=== PATIENT | male | born 1940 | race Caucasian/White ===

== ENCOUNTER 2018-03-19 14:54 | Outpatient (CLI) | payer MEDICARE, OTHER ==
--- NOTE | 2018-03-20 01:07 | XRAY Report ---
Reason: STUBBY INJURY #3 L, UNABLE TO EXTEND Procedure Date: 03/19/2018 Accession Number: [id number] / [id number] Procedure: XR - Finger(s) LT CPT Code: FULL RESULT: EXAM: LEFT THIRD DIGIT RADIOGRAPHY EXAM DATE: 03/19/2018 03:04 PM. CLINICAL HISTORY: STUBBY INJURY 3 left, UNABLE TO EXTEND. Distal tip of finger struck by a soccer ball 2-3 days ago. COMPARISON: None. TECHNIQUE: 3 views. FINDINGS: Chronic appearing calcifications adjacent to the distal aspect of the third proximal phalanx. 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 Adjacent chronic appearing calcifications. Adjacent soft tissue swelling. Mild third DIP osteoarthritis and adjacent dorsal chronic calcifications. Mild to moderate second PIP osteoarthritis. No dislocation. No evidence for acute fracture. IMPRESSION: No evidence for acute fracture. Soft tissue swelling adjacent to the third PIP joint. Osteoarthritis as above. RADIA
== END 2018-03-19 14:55 | disposition home or self-care (01) ==
LOC: DI 14:54
PROVIDERS: ATTEND Family Medicine
DX: S66.303A Unspecified injury of extensor muscle, fascia and tendon of left middle finger at wrist and hand level, initial encounter (principal); M19.042 Primary osteoarthritis, left hand
CPT/HCPCS: 73140

== ENCOUNTER 2019-06-13 09:19 | Outpatient (CLI) | payer MEDICARE, OTHER ==
[2019-06-13 09:47] LABS: BASOPHILS % (AUTO) 0.6 %; EOSINOPHILS # (AUTO) 0.3 10^3/uL (0.0-0.7); EOSINOPHILS % (AUTO) 6.2 %; HGB - HEMOGLOBIN 15.6 g/dL (14.0-18.0); LYMPHOCYTES # (AUTO) 1.4 10^3/uL (1.5-3.5); LYMPHOCYTES % (AUTO) 27.1 %; MEAN CORPUSCULAR HEMOGLOBIN 30.1 pg (27.0-31.0); MEAN CORPUSCULAR HGB CONC 33.3 g/dL (32.0-36.0); MEAN CORPUSCULAR VOLUME 90.4 fL (80.0-94.0); MEAN PLATELET VOLUME 9.1 fL (7.4-11.4); MONOCYTES # (AUTO) 0.7 10^3/uL (0.0-1.0); MONOCYTES % (AUTO) 12.2 %; NEUTROPHILS # (AUTO) 2.9 10^3/uL (1.5-6.6); NEUTROPHILS % (AUTO) 53.5 %; PLT - PLATELET COUNT 252 10^3/uL (130-450); RED BLOOD COUNT 5.19 10^6/uL (4.70-6.10); RED CELL DISTRIBUTION WIDTH 14.1 % (12.0-15.0); WHITE BLOOD COUNT 5.3 x10^3/uL (4.8-10.8)
[2019-06-13 10:05] LABS: ALBUMIN/GLOBULIN RATIO 1.1 (1.0-2.2); BILIRUBIN,TOTAL 0.9 mg/dL (0.2-1.0); CALCIUM 9.4 mg/dL (8.5-10.3); CREATININE 1.2 mg/dL (0.6-1.2); TOTAL PROTEIN 7.7 g/dL (6.7-8.2)
[2019-06-13 10:41] LABS: THYROID STIMULATING HORMONE 2.28 uIU/mL (0.34-5.60)
[2019-06-13 10:43] LABS: FREE T4 (FREE THYROXINE) 1.02 ng/dL (0.58-1.64)
== END 2019-06-13 09:20 | disposition home or self-care (01) ==
LOC: LAB 09:19
PROVIDERS: ATTEND Family Medicine
DX: E03.9 Hypothyroidism, unspecified (principal); L57.0 Actinic keratosis; C43.59 Malignant melanoma of other part of trunk; Q60.0 Renal agenesis, unilateral; Q60.2 Renal agenesis, unspecified
CPT/HCPCS: 36415; 80053; 84439; 84443; 84481; 85025

== ENCOUNTER 2020-08-01 08:18 | Outpatient (CLI) | payer MEDICARE, OTHER ==
[2020-08-01 08:35] LABS: BASOPHILS # (AUTO) 0.1 10^3/uL (0.0-0.1); EOSINOPHILS # (AUTO) 0.2 10^3/uL (0.0-0.7); EOSINOPHILS % (AUTO) 4.4 %; HCT - HEMATOCRIT 48.7 % (42.0-52.0); LYMPHOCYTES # (AUTO) 1.3 10^3/uL (1.5-3.5); LYMPHOCYTES % (AUTO) 25.3 %; MEAN CORPUSCULAR HEMOGLOBIN 30.1 pg (27.0-31.0); MEAN CORPUSCULAR HGB CONC 32.9 g/dL (32.0-36.0); MEAN CORPUSCULAR VOLUME 91.5 fL (80.0-94.0); MONOCYTES # (AUTO) 0.8 10^3/uL (0.0-1.0); MONOCYTES % (AUTO) 14.7 %; NEUTROPHILS # (AUTO) 2.8 10^3/uL (1.5-6.6); PLT - PLATELET COUNT 267 10^3/uL (130-450); RED BLOOD COUNT 5.32 10^6/uL (4.70-6.10); RED CELL DISTRIBUTION WIDTH 13.7 % (12.0-15.0); WHITE BLOOD COUNT 5.3 x10^3/uL (4.8-10.8)
[2020-08-01 08:53] LABS: ALBUMIN/GLOBULIN RATIO 1.1 (1.0-2.2); ALKALINE PHOSPHATASE 68 IU/L (42-121); ALT ALANINE AMINOTRANSFERASE 31 IU/L (10-60); AST ASPARTATE AMINOTRANSFERASE 21 IU/L (10-42); BILIRUBIN,TOTAL 0.8 mg/dL (0.2-1.0); BUN - BLOOD UREA NITROGEN 16 mg/dL (6-20); CALCIUM 9.5 mg/dL (8.5-10.3); CARBON DIOXIDE - CO2 27 mmol/L (21-32); CHLORIDE 99 mmol/L (101-111); CHOL/HDL RATIO 3.7 (<5.0); CHOLESTEROL 211 mg/dL; CREATININE 1.2 mg/dL (0.6-1.2); GFR - MDRD 58 (>89); GLUCOSE 109 mg/dL (70-100); HDL CHOLESTEROL 57 mg/dL; LDL CHOLESTEROL,CALCULATED 140 mg/dL; LDL/HDL RATIO 2.5 (<3.6); POTASSIUM 5.1 mmol/L (3.5-5.0); SODIUM 135 mmol/L (135-145); TOTAL PROTEIN 7.6 g/dL (6.7-8.2); TRIGLYCERIDES 72 mg/dL; VLDL CHOLESTEROL 14 mg/dL
[2020-08-01 09:03] LABS: THYROID STIMULATING HORMONE 1.93 uIU/mL (0.34-5.60)
== END 2020-08-01 08:19 | disposition home or self-care (01) ==
LOC: LAB 08:18
PROVIDERS: ATTEND Family Medicine
DX: E03.9 Hypothyroidism, unspecified (principal); Z85.820 Personal history of malignant melanoma of skin; Z90.5 Acquired absence of kidney
CPT/HCPCS: 36415; 80053; 80061; 83721; 84443; 85025

== ENCOUNTER 2021-04-04 15:27 | Outpatient (CLI) | payer MEDICARE, OTHER | END 2021-04-04 15:28 | disposition home or self-care (01) | LOC: RT 15:27 | PROVIDERS: ATTEND Family Medicine | DX: I49.9 Cardiac arrhythmia, unspecified (principal) | CPT/HCPCS: 93005 ==

== ENCOUNTER 2021-08-28 09:23 | Outpatient (CLI) | payer MEDICARE, OTHER ==
[2021-08-28 09:50] LABS: BASOPHILS % (AUTO) 0.6 %; EOSINOPHILS # (AUTO) 0.2 10^3/uL (0.0-0.7); EOSINOPHILS % (AUTO) 3.8 %; HCT - HEMATOCRIT 48.8 % (42.0-52.0); HGB - HEMOGLOBIN 16.4 g/dL (14.0-18.0); LYMPHOCYTES # (AUTO) 1.1 10^3/uL (1.5-3.5); LYMPHOCYTES % (AUTO) 23.4 %; MEAN CORPUSCULAR HEMOGLOBIN 30.4 pg (27.0-31.0); MEAN CORPUSCULAR HGB CONC 33.6 g/dL (32.0-36.0); MEAN CORPUSCULAR VOLUME 90.4 fL (80.0-94.0); MEAN PLATELET VOLUME 9.1 fL (7.4-11.4); MONOCYTES # (AUTO) 0.7 10^3/uL (0.0-1.0); MONOCYTES % (AUTO) 13.7 %; NEUTROPHILS # (AUTO) 2.8 10^3/uL (1.5-6.6); NEUTROPHILS % (AUTO) 58.3 %; PLT - PLATELET COUNT 251 10^3/uL (130-450); RED CELL DISTRIBUTION WIDTH 13.2 % (12.0-15.0); WHITE BLOOD COUNT 4.7 x10^3/uL (4.8-10.8)
[2021-08-28 10:04] LABS: ALBUMIN/GLOBULIN RATIO 1.1 (1.0-2.2); BILIRUBIN,TOTAL 0.9 mg/dL (0.2-1.0); CALCIUM 9.6 mg/dL (8.5-10.3); CREATININE 1.2 mg/dL (0.6-1.2); POTASSIUM 4.8 mmol/L (3.5-5.0); TOTAL PROTEIN 7.8 g/dL (6.7-8.2)
[2021-08-28 10:21] LABS: THYROID STIMULATING HORMONE 1.43 uIU/mL (0.34-5.60)
== END 2021-08-28 09:24 | disposition home or self-care (01) ==
LOC: LAB 09:23
PROVIDERS: ATTEND Family Medicine
DX: E03.9 Hypothyroidism, unspecified (principal)
CPT/HCPCS: 36415; 80053; 84443; 85025

== ENCOUNTER 2022-01-23 10:37 | Outpatient (CLI) | payer MEDICARE, OTHER ==
[2022-01-23 10:53] LABS: HGB - HEMOGLOBIN 16.2 g/dL (14.0-18.0); MEAN CORPUSCULAR HEMOGLOBIN 30.5 pg (27.0-31.0); MEAN CORPUSCULAR HGB CONC 33.8 g/dL (32.0-36.0); MEAN CORPUSCULAR VOLUME 90.4 fL (80.0-94.0); MEAN PLATELET VOLUME 8.8 fL (7.4-11.4); RED BLOOD COUNT 5.31 10^6/uL (4.70-6.10); RED CELL DISTRIBUTION WIDTH 13.3 % (12.0-15.0); WHITE BLOOD COUNT 5.8 x10^3/uL (4.8-10.8)
[2022-01-23 11:10] LABS: ALBUMIN 3.8 g/dL (3.2-5.5); BILIRUBIN,TOTAL 0.8 mg/dL (0.2-1.0); CALCIUM 9.5 mg/dL (8.5-10.3); POTASSIUM 4.7 mmol/L (3.5-5.0); TOTAL PROTEIN 7.7 g/dL (6.7-8.2)
== END 2022-01-23 10:38 | disposition home or self-care (01) ==
LOC: LAB 10:37
PROVIDERS: ATTEND Internal Medicine Cardiovascular Disease
DX: I48.91 Unspecified atrial fibrillation (principal)
CPT/HCPCS: 36415; 80053; 85027

== ENCOUNTER 2022-07-02 08:51 | Outpatient (CLI) | payer MEDICARE, OTHER ==
[2022-07-02 09:07] LABS: BASOPHILS # (AUTO) 0.1 10^3/uL (0.0-0.1); BASOPHILS % (AUTO) 0.9 %; EOSINOPHILS # (AUTO) 0.2 10^3/uL (0.0-0.7); EOSINOPHILS % (AUTO) 4.4 %; HCT - HEMATOCRIT 49.4 % (42.0-52.0); HGB - HEMOGLOBIN 16.1 g/dL (14.0-18.0); LYMPHOCYTES # (AUTO) 1.4 10^3/uL (1.5-3.5); LYMPHOCYTES % (AUTO) 25.8 %; MEAN CORPUSCULAR HEMOGLOBIN 29.5 pg (27.0-31.0); MEAN CORPUSCULAR HGB CONC 32.6 g/dL (32.0-36.0); MEAN CORPUSCULAR VOLUME 90.5 fL (80.0-94.0); MEAN PLATELET VOLUME 9.3 fL (7.4-11.4); MONOCYTES # (AUTO) 0.7 10^3/uL (0.0-1.0); MONOCYTES % (AUTO) 13.1 %; NEUTROPHILS # (AUTO) 2.9 10^3/uL (1.5-6.6); NEUTROPHILS % (AUTO) 55.4 %; PLT - PLATELET COUNT 267 10^3/uL (130-450); RED BLOOD COUNT 5.46 10^6/uL (4.70-6.10); RED CELL DISTRIBUTION WIDTH 13.4 % (12.0-15.0); WHITE BLOOD COUNT 5.3 x10^3/uL (4.8-10.8)
[2022-07-02 09:30] LABS: ALBUMIN 4.1 g/dL (3.2-5.5); ALBUMIN/GLOBULIN RATIO 1.1 (1.0-2.2); ALKALINE PHOSPHATASE 62 IU/L (42-121); ALT ALANINE AMINOTRANSFERASE 26 IU/L (10-60); AST ASPARTATE AMINOTRANSFERASE 18 IU/L (10-42); BILIRUBIN,TOTAL 0.9 mg/dL (0.2-1.0); BUN - BLOOD UREA NITROGEN 14 mg/dL (6-20); CALCIUM 9.6 mg/dL (8.5-10.3); CARBON DIOXIDE - CO2 28 mmol/L (21-32); CHLORIDE 102 mmol/L (101-111); CHOL/HDL RATIO 4.3 (<5.0); CHOLESTEROL 223 mg/dL; CREATININE 1.1 mg/dL (0.6-1.2); GFR - MDRD 64 (>89); GLUCOSE 109 mg/dL (70-100); HDL CHOLESTEROL 52 mg/dL; LDL CHOLESTEROL,CALCULATED 152 mg/dL; LDL/HDL RATIO 2.9 (<3.6); POTASSIUM 4.5 mmol/L (3.5-5.0); SODIUM 139 mmol/L (135-145); TOTAL PROTEIN 7.7 g/dL (6.7-8.2); TRIGLYCERIDES 96 mg/dL; VLDL CHOLESTEROL 19 mg/dL
[2022-07-02 09:42] LABS: THYROID STIMULATING HORMONE 1.75 uIU/mL (0.34-5.60)
[2022-07-02 11:09] LABS: ESTIMATED AVERAGE GLUCOSE 128 mg/dL (70-100); HEMOGLOBIN A1c% 6.1 % (4.27-6.07)
== END 2022-07-02 08:52 | disposition home or self-care (01) ==
LOC: LAB 08:51
PROVIDERS: ATTEND Family Medicine
DX: I48.91 Unspecified atrial fibrillation (principal); R73.9 Hyperglycemia, unspecified; M25.462 Effusion, left knee; E03.9 Hypothyroidism, unspecified; Z12.5 Encounter for screening for malignant neoplasm of prostate; Z90.5 Acquired absence of kidney
CPT/HCPCS: 36415; 80053; 80061; 83036; 84443; 85025; G0103; 83721; 84153

== ENCOUNTER 2022-09-17 12:21 | Outpatient (CLI) | payer MEDICARE, OTHER | END 2022-09-17 12:22 | disposition home or self-care (01) | LOC: DI 12:21 | PROVIDERS: ATTEND Family Medicine | DX: I48.91 Unspecified atrial fibrillation (principal) | CPT/HCPCS: 93306 ==

== ENCOUNTER 2022-09-22 14:42 | Outpatient (CLI) | payer MEDICARE, OTHER | END 2022-09-22 14:43 | disposition critical access hospital (66) | LOC: EMS 14:42 | DX: R53.1 Weakness (principal); R20.0 Anesthesia of skin; R47.89 Other speech disturbances | CPT/HCPCS: A0425; A0429 ==

== ENCOUNTER 2022-09-22 14:58 | Observation (INO) | payer MEDICARE, OTHER ==
--- NOTE | 2022-09-22 15:23 | ED Physician Documentation ---
PD HPI FOCAL NEURO - Stated complaint Stated Complaint: R SIDED NUMBNESS - Chief complaint Chief Complaint: Neuro - History obtained from History obtained from: Patient, Family, EMS - History of Present Illness Timing - onset: Today Timing - details: Abrupt onset, Now resolved Severity of deficit: Moderate Weakness: Face, Arm, Hand, Leg, Foot, Right Numbness: Face, Arm, Hand, Leg, Foot, Right Associated symptoms: Fall (Patient did lower himself to the ground using his left arm and leg. He denies any head injury.). No: Headache, Nausea / vomiting, Seizure, Syncope, Head injury, Chest pain, Neck pain, Back pain, Fever Contributing factors: positive: Atrial fibrillation Baseline status: positive: A&OX3, ambulatory, indep - Additional information Additional information: Patient is an 82-year-old male brought in by EMS. He states he was at home today when he had about a 10-minute episode of right-sided weakness and numbness. He states that his arm and hand were not working correctly and he could not use his right leg. He states he had slurred speech as well. This lasted for about 10 minutes. He states that he and his were going to wait for a ride, but after about an hour and a half the symptoms recurred again for about 15 minutes. He states currently he is asymptomatic. Does have a history of atrial fibrillation. No history of stroke. He is not anticoagulated. No headache. No trauma. Nothing makes it better or worse. No history of heart attack, stent, pacemaker. He had a recent echocardiogram. He is scheduled to see cardiology next week. Review of Systems Constitutional: denies: Fever, Chills GI: denies: Vomiting, Diarrhea Skin: denies: Rash Musculoskeletal: denies: Neck pain, Back pain Neurologic: denies: Focal weakness, Numbness, Confused, Headache PD PAST MEDICAL HISTORY - Past Medical History Past Medical History: Yes Cardiovascular: Hypertension, Atrial fibrillation Endocrine/Autoimmune: HyPOthyroidism - Past Surgical History Past Surgical History: No - Present Medications Home Medications: Ambulatory Orders Medication Instructions Recorded Confirmed Levothyroxine Sodium 50 mcg PO DAILY 09/22/22 09/22/22 Metoprolol Succinate [Toprol Xl] 25 mg PO ONCE 09/22/22 09/22/22 - Allergies Allergies/Adverse Reactions: Allergies Allergy/AdvReac Type Severity Reaction Status Date / Time No Known Drug Allergies Allergy Verified 09/22/22 15:05 - Living Situation Living Situation: reports: With family Living Arrangement: reports: At home - Social History Does the pt have substance abuse?: No - Family History Family history: reports: Non contributory PD ED PE NORMAL - Vitals Vital signs reviewed: Yes - General General: Alert and oriented X 3, No acute distress, Well developed/nourished - HEENT HEENT: Atraumatic, PERRL, EOMI, Moist mucous membranes - Neck Neck: Supple, no meningeal sign - Cardiac Cardiac: RRR, No murmur, Strong equal pulses - Respiratory Respiratory: No respiratory distress, Clear bilaterally - Abdomen Abdomen: Soft, Non tender, Non distended - Back Back: No CVA TTP, No spinal TTP - Derm Derm: Warm and dry, No rash - Extremities Extremities: No edema, No calf tenderness / cord - Neuro Neuro: Alert and oriented X 3, lineman 2-12 intact, No motor deficit, No sensory deficit, Normal speech Eye Opening: Spontaneous Motor: Obeys Commands Verbal: Oriented GCS Score: 15 - Psych Psych: Normal mood, Normal affect NIHSS - Time Time: 15:20 - Level of Consciousness Level of consciousness: (0) Alert, Keenly responsive LOC Questions: (0) Answers both Q's correct LOC Commands: (0) Performs both correctly - Gaze Best Gaze: (0) Normal - Visual Visual: (0) No loss - Facial Palsy Facial Palsy: (0) Normal, symmetrical movement - Motor Arms (both separate) Motor Arm (right): (0) No drift Motor Arm (left): (0) No drift - Motor Legs (both separate) Motor Leg (right): (0) No drift Motor Leg (left): (0) No drift - Limb Ataxia Limb Ataxia: (0) Absent - Sensory Sensory: (0) Normal - Best Language Best Language: (0) No aphasia - Dysarthria Dysarthria: (0) Normal - Extinction and Inattention (formally neg Extinction and inattention: (0) No abnormality - Total Score/Results Total Score/Result: 0 Results - Vitals Vitals: Vital Signs - 24 hr 09/22/22 09/22/22 09/22/22 15:05 15:41 17:21 Temperature 36.5 C Heart Rate 92 79 95 Respiratory 20 13 16 Rate Blood Pressure 129/85 H 138/90 H 134/92 H O2 Saturation 95 97 97 09/22/22 09/22/22 19:10 21:20 Temperature Heart Rate 76 78 Respiratory 16 16 Rate Blood Pressure 129/97 H 125/86 H O2 Saturation 100 95 Oxygen O2 Source Room air - EKG (time done) 1538 EKG releavant findings:: EKG personally interpreted by author of this note. Relevant findings are: Rate: Rate (enter#) (83) Rhythm: Atrial fibrillation [place]: LAD QRS: Normal Ischemia: Normal ST segments - Labs Labs: Laboratory Tests 09/22/22 09/22/22 09/22/22 15:37 15:37 15:37 WBC 6.8 RBC 5.14 Hgb 15.7 Hct 46.3 MCV 90.1 MCH 30.5 MCHC 33.9 RDW 13.5 Plt Count 275 MPV 9.0 Neut # (Auto) 4.9 Lymph # (Auto) 1.0 L [place] # (Auto) 0.8 Eos # (Auto) 0.1 Baso # (Auto) 0.0 Absolute Nucleated RBC 0.00 Nucleated RBC % 0.0 PT 13.9 H INR 1.3 H APTT 29.5 Sodium 135 Potassium 4.3 Chloride 98 L Carbon Dioxide 28 Anion Gap 9.0 BUN 16 Creatinine 0.9 Estimated GFR (MDRD) 80 L Glucose 104 H Calcium 9.4 Total Bilirubin 0.7 AST 21 ALT 26 Alkaline Phosphatase 69 Total Protein 7.9 Albumin 4.0 Globulin 3.9 Albumin/Globulin Ratio 1.0 Lipase 43 Urine Color Urine Clarity Urine pH Ur Specific [place] Urine Protein Urine Glucose (UA) Urine Ketones Urine Occult Blood Urine Nitrite Urine Bilirubin Urine Urobilinogen Ur Leukocyte Esterase Ur Microscopic Review Urine Culture Comments 09/22/22 15:37 WBC RBC Hgb Hct MCV MCH MCHC RDW Plt Count MPV Neut # (Auto) Lymph # (Auto) [place] # (Auto) Eos # (Auto) Baso # (Auto) Absolute Nucleated RBC Nucleated RBC % PT INR APTT Sodium Potassium Chloride Carbon Dioxide Anion Gap BUN Creatinine Estimated GFR (MDRD) Glucose Calcium Total Bilirubin AST ALT Alkaline Phosphatase Total Protein Albumin Globulin Albumin/Globulin Ratio Lipase Urine Color YELLOW Urine Clarity CLEAR Urine pH 7.0 Ur Specific [place] 1.015 Urine Protein TRACE Urine Glucose (UA) NEGATIVE Urine Ketones NEGATIVE Urine Occult Blood NEGATIVE Urine Nitrite NEGATIVE Urine Bilirubin NEGATIVE Urine Urobilinogen 0.2 (NORMAL) Ur Leukocyte Esterase NEGATIVE Ur Microscopic Review NOT INDICATED Urine Culture Comments NOT INDICATED - Rads (name of study) CTA head Relevant Findings:: Final report received, See rad report CTA neck Relevant Findings:: Final report received, See rad report MRI Brain w/o Relevant Findings:: Final report received, See rad report PD Medical Decision Making - ED course Complexity details: reviewed results, re-evaluated patient, considered differential, d/w patient, d/w travel sales consultant ED course: Patient with stuttering TIAs today. No acute findings on CT angiogram head and neck. Brain MRI does not show any evidence of acute stroke. Patient is fully resolved so would not be a tPA candidate. We will place the patient observation for serial neurochecks. Patient started on aspirin and Eliquis. I discussed the case with Dr. Jiang, hospitalist on-call. He recommends consulting neurology. I spoke with neurology, Dr. Bianca Art from [facility], she recommends placing the patient in observation, starting on anticoagulation. She recommends a carotid ultrasound in the morning as she saw a potential defect versus artifact in the internal carotid artery on angiogram. Recommend a statin as well. Patient will be signed out to the oncoming emergency department physician awaiting the final telemetry hospitalist on-call callback for admission. Patient continues to be asymptomatic. This document was made in part using voice recognition software. While efforts are made to proofread this document, sound alike and grammatical errors may occur. Departure - Departure Disposition: ED Place in Observation Clinical Impression: TIA (transient ischemic attack) Atrial fibrillation Qualifiers: Atrial fibrillation type: unspecified Qualified Code(s): I48.91 - Unspecified atrial fibrillation Condition: Stable
[2022-09-22 15:49] LABS: BASOPHILS % (AUTO) 0.6 %; EOSINOPHILS # (AUTO) 0.1 10^3/uL (0.0-0.7); EOSINOPHILS % (AUTO) 1.6 %; HCT - HEMATOCRIT 46.3 % (42.0-52.0); HGB - HEMOGLOBIN 15.7 g/dL (14.0-18.0); MEAN CORPUSCULAR HEMOGLOBIN 30.5 pg (27.0-31.0); MEAN CORPUSCULAR HGB CONC 33.9 g/dL (32.0-36.0); MEAN CORPUSCULAR VOLUME 90.1 fL (80.0-94.0); MONOCYTES # (AUTO) 0.8 10^3/uL (0.0-1.0); MONOCYTES % (AUTO) 11.7 %; NEUTROPHILS # (AUTO) 4.9 10^3/uL (1.5-6.6); NEUTROPHILS % (AUTO) 71.8 %; PLT - PLATELET COUNT 275 10^3/uL (130-450); RED BLOOD COUNT 5.14 10^6/uL (4.70-6.10); RED CELL DISTRIBUTION WIDTH 13.5 % (12.0-15.0); WHITE BLOOD COUNT 6.8 x10^3/uL (4.8-10.8)
[2022-09-22 15:50] LABS: BILIRUBIN,URINE NEGATIVE (NEGATIVE); GLUCOSE, URINE (UA) NEGATIVE (NEGATIVE); KETONES,URINE (UA) NEGATIVE (NEGATIVE); LEUKOCYTE ESTERASE, URINE NEGATIVE (NEGATIVE); NITRITE,URINE NEGATIVE (NEGATIVE); OCCULT BLOOD,URINE NEGATIVE (NEGATIVE); PROTEIN,URINE TRACE mg/dL (NEGATIVE); UROBILINOGEN,URINE 0.2 (NORMAL) E.U./dL (NORMAL)
[2022-09-22 15:55] LABS: CLARITY,URINE CLEAR (CLEAR)
[2022-09-22 16:00] LABS: BILIRUBIN,TOTAL 0.7 mg/dL (0.2-1.0); CALCIUM 9.4 mg/dL (8.5-10.3); CREATININE 0.9 mg/dL (0.6-1.2); INR 1.3 (0.8-1.2); POTASSIUM 4.3 mmol/L (3.5-5.0); PT - PROTHROMBIN TIME 13.9 secs (9.9-12.6); TOTAL PROTEIN 7.9 g/dL (6.7-8.2)
[2022-09-22 16:07] LABS: PARTIAL THROMBOPLASTIN TIME 29.5 secs (24.9-33.3)
[2022-09-22] MEDS ORDERED: iohexoL-300 100 ML VIAL ONE (16:11)
[2022-09-22] MEDS ORDERED: iohexoL-300 100 ML VIAL IVP ONE (16:49)
--- NOTE | 2022-09-22 17:13 | CT Report ---
PROCEDURE: CT angiogram head with contrast, CT brain without contrast INDICATIONS: R sided weakness, numbness, resolved CONTRAST: 80ml Omnipaque 300 TECHNIQUE: Precontrast 4.5 mm thick angled axial sections acquired from the foramen magnum to the vertex. Afte r the administration of intravenous contrast, 1 mm thick sections acquired through the Pep of Will is. Postcontrast 4.5 mm thick sections then re-acquired from the foramen magnum to the vertex. maxi kal-nkvwfmknc-tfraftxkrz (MIP) and/or volume rendering reformats were acquired of the central intracr anial vasculature. For radiation dose reduction, the following was used: automated exposure control , adjustment of mA and/or kV according to patient size. COMPARISON: None FINDINGS: Image quality: Excellent. Anterior circulation: Atherosclerotic vascular calcification noted involving the cavernous segments o f both internal carotid arteries without stenosis or aneurysm . The flow within the paired anterior cerebral arteries is normal and symmetric. The flow within the middle cerebral arteries is normal an d symmetric. The anterior communicating artery is seen. No aneurysms are seen. Posterior circulation: Visualized portions of the vertebral arteries demonstrate normal caliber, and join to form a normal appearing basilar artery. Flow within the posterior cerebral arteries is norm al and symmetric. No aneurysms are seen. CSF spaces: Ventricles are normal in size and shape. Basal cisterns are patent. No extra-axial flu id collections. Brain: Old left cerebellar infarct present. Moderate atrophy and mild white matter chronic ischemic c hange. No intracranial hemorrhage or mass effect. Skull and face: Calvarium and facial bones appear intact, without suspicious lesions. Sinuses: Complete right maxillary sinus opacification with wall thickening, consistent with chronic s inusitis. Mucosal thickening involves the right sphenoid sinus IMPRESSION: Mild atherosclerotic calcification without large vessel occlusion, aneurysm or vascular malformation. Atrophy and chronic ischemic change without intracranial hemorrhage or mass effect Reviewed by: Nestor Shah MD on 09/22/2022 4:12 PM AKCAMILO Approved by: Nestor Shah MD on 09/22/2022 4:12 PM AKDT Station ID: [id number]
--- NOTE | 2022-09-22 17:15 | CT Report ---
PROCEDURE: CT angiogram neck with contrast INDICATIONS: R sided weakness, numbness, resolved CONTRAST: 80ml Omnipaque 300 TECHNIQUE: After the administration of intravenous contrast, 1.5 mm axial sections acquired from the aortic arch to the [place] of [place]. Coronal 3-D maximum intensity projection (MIP) and/or volume rendering ref ormats were then performed. For radiation dose reduction, the following was used: automated exposur e control, adjustment of mA and/or kV according to patient size. COMPARISON: None. FINDINGS: Image quality: Excellent. Carotid system: The great vessels demonstrate a conventional anatomy as they arise from the aortic a rch. The origins of the common carotid arteries appear patent. The common carotid arteries demonstr ate normal calibers and courses. The bifurcation regions appear normal bilaterally. The internal ca rotid arteries demonstrate normal caliber and course. Posterior circulation: The origins of the vertebral arteries appear patent. The more superior porti ons of the vertebral arteries demonstrate normal course and caliber. They join to form a normal appe aring basilar artery. Soft tissues: Visualized neck soft tissues demonstrate no suspicious abnormalities. The thyroid is normal in size and there are no incidental findings. Bones: No suspicious bony lesions. Visualized cervical spine appears normally aligned. IMPRESSION: Unremarkable CT angiogram the neck The estimate of stenosis included in the report of the imaging study was calculated using the NASCET method CLINICAL RECOMMENDATION STATEMENTS: In patients <35 years with an ITN detected on CT, MRI, or extrathyroidal ultrasound, the Committee re commends further evaluation with dedicated thyroid ultrasound if the nodule is "e1 cm and has no susp icious imaging features, and if the patient has normal life expectancy. In patients "e35 years with an ITN detected on CT, MRI, or extrathyroidal ultrasound, the Committee r ecommends further evaluation with dedicated thyroid ultrasound if the nodule is "e1.5 cm and has no s uspicious imaging features, and if the patient has normal life expectancy. (ACR, 2014) Reviewed by: Nestor Shah MD on 09/22/2022 4:14 PM AKCAMILO Approved by: Nestor Shah MD on 09/22/2022 4:14 PM AKDT Station ID: [id number]
[2022-09-22] MEDS ORDERED: ASPIRIN CHEW 81 MG TABLET PO STA (17:37)
--- NOTE | 2022-09-22 17:37 | MRI Report ---
PROCEDURE: BRAIN WO INDICATIONS: R sided weakness, numbness, resolved TECHNIQUE: Noncontrast axial T1 spin echo, axial T2 fast spin echo, sagittal and axial FLAIR, coronal T2 fast sp in echo, axial gradient echo, axial diffusion and ADC through the brain. COMPARISON: CT head anterior with and without., 09/22/2022 FINDINGS: Image quality: Excellent. CSF Spaces: Basal cisterns are patent. No extra-axial fluid collections. Ventricles are normal in size and shape. Brain: No intracranial masses or hemorrhage. Mild cerebral volume loss. Moderate periventricular wh ite matter chronic small vessel ischemic changes. Melara/white matter interface is normal. Brainstem a ppears normal. Diffusion-weighted images demonstrate no acute ischemic insult. No chronic ischemic insults. Normal intravascular flow voids are present. Skull and face: Calvarium has normal marrow signal. Orbits appear normal. Sinuses: The right maxillary sinus is completely opacified. There is mucosal thickening of the right sphenoid sinus. There is small amount of fluid in the left mastoids. IMPRESSION: 1. No acute intracranial abnormality. 2. Mild cerebral volume loss and moderate periventricular white matter chronic small vessel treatment changes. 3. Complete opacification of the right maxillary sinus, consistent with sinusitis. Reviewed by: Simin Gonzalez MD on 09/22/2022 5:36 PM PDT Approved by: Simin Gonzalez MD on 09/22/2022 5:36 PM PDT Station ID: [id number]
[2022-09-22] MEDS ORDERED: APIXABAN 5 MG TABLET PO STA (20:11)
[2022-09-23] MEDS ORDERED: ONDANSETRON 4 MG/2 ML VIAL IVP PRN (00:07)
[2022-09-23] MEDS ORDERED: SODIUM CHLORIDE FLUSH 0.9% 10 ML SYRINGE IVP PRN (00:07)
--- NOTE | 2022-09-23 00:20 | HISTORY & PHYSICAL EXAMINATION ---
Chief Complaint - Chief Complaint Chief Complaint: Slurred speech and right sided weakness History of Present Illness - History of Present Illness HPI Comment/Other: 82 y old male with PMH Hypothyroidism, A fib , not on anticoagulation presented to ER with the C/O slurred speech and right sided numbness and weakness which started at 01:00 pm and lasted for about 10 minuyes. No LOC. As per pt, symptoms came back again after 45 minutes and lasted for about 15 minutes. Pt is asymtomatic at this time. Able to talk and move all extremities. Denies OSEGUERA, fever, chest pain, SOB, GI, symptoms On presentaion, vital stable CTA head and neck and MRI brain showed no acute abnormalities. Tele neurology was consulted who recommended, carotid US and anticoagulation Pt is admitted due to TIA History - Past Medical History Cardiovascular: reports: Hypertension, Atrial fibrillation Endocrine/Autoimmune: reports: HyPOthyroidism MRSA Hx?: No - Family & Social History Living arrangement: At home Living Situation: With family Meds/Allgy - Home Medications Home Medications: Ambulatory Orders Medication Instructions Recorded Confirmed Levothyroxine Sodium 50 mcg PO DAILY 09/22/22 09/22/22 Metoprolol Succinate [Toprol Xl] 25 mg PO ONCE 09/22/22 09/22/22 - Allergies Allergies/Adverse Reactions: Allergies Allergy/AdvReac Type Severity Reaction Status Date / Time No Known Drug Allergies Allergy Verified 09/22/22 15:05 Review of Systems - Other Findings Other Findings: 10 POINT SYSTEMS WERE REVIEWED AND WERE NEGATIVE EXCEPT MENTIONED IN HPI Exam - Vital Signs Vital Signs: Vital Signs x48h Temp Pulse Resp BP Pulse Ox 09/22/22 23:00 36.5 C 98 16 115/86 H 98 09/22/22 21:20 78 16 125/86 H 95 09/22/22 19:10 76 16 129/97 H 100 09/22/22 17:21 95 16 134/92 H 97 - Physical Exam General Appearance: positive: No acute distress Eyes Bilateral: positive: Normal inspection ENT: positive: ENT inspection nml Neck: positive: Nml inspection Respiratory: positive: Chest non-tender, No respiratory distress, Breath sounds nml Cardiovascular: positive: Irregularly irregular Abdomen: positive: Non-tender, Nml bowel sounds Skin: positive: No rash Neurologic/Psychiatric: positive: Oriented x3, Motor nml, Sensation nml Conclusion/Plan - Lab Results Fish Bones: 09/22/22 15:37 09/22/22 15:37 - Other Other Results/Comments: A: TIA Slurred speech Atrial fibrillation, Chronic Hypothyroidism Plan: Admit in tele Echo Carotid doppler Start aspirin 81 mg po qd Eliquis 5 mg po bid Lipitor 80 mg po qd lipid panel NPO ST/PT/OT Cont metoporolol Cont levothyroxin DVT prophylaxic: On Eliquis Full code Pt is admitted as inpatient as more than 2 midnight stay is expected
[2022-09-23 01:25] LABS: CHOL/HDL RATIO 4.3 (<5.0); CHOLESTEROL 230 mg/dL; HDL CHOLESTEROL 54 mg/dL; LDL CHOLESTEROL,CALCULATED 152 mg/dL; LDL/HDL RATIO 2.8 (<3.6); TRIGLYCERIDES 122 mg/dL; VLDL CHOLESTEROL 24 mg/dL
[2022-09-23] MEDS: SODIUM CHLORIDE FLUSH 0.9% 10 ML SYRINGE IVP SCH ×2 (06:03→08:35)
[2022-09-23] MEDS ORDERED: LEVOTHYROXINE 25 MCG TABLET PO SCH (07:00)
[2022-09-23] MEDS ORDERED: ASPIRIN CHEW 81 MG TABLET PO SCH (09:00)
[2022-09-23] MEDS ORDERED: METOPROLOL SUCCINATE 25 MG TABLET PO ONE (09:00)
[2022-09-23] MEDS ORDERED: APIXABAN 5 MG TABLET PO SCH (09:00)
[2022-09-23] MEDS ORDERED: ATORVASTATIN 40 MG TABLET PO SCH (09:00)
[2022-09-23] MEDS ORDERED: METOPROLOL TARTRATE 50 MG TABLET PO SCH (09:00)
[2022-09-23] MEDS ORDERED: TRIAMCINOLONE 0.1% CREAM 15 GM TUBE TOP SCH (10:00)
--- NOTE | 2022-09-23 10:44 | PHARMACY PROGRESS NOTE ---
- Best Possible Medication History Admit Date and Time: 09/23/22 0831 Processed by: Pharmacy Medication History completed: Yes Patient Interview: Completed Secondary Source(s): Insurance records (PT [employer] HISTORIAN AND RECOLLECTS MEDS AND DOSES WELL.) As the person ultimately responsible for medication therapy, providers are able to order a medication from an existing home medication list in [facility] via the "Reconcile Routine" prior to Confirmation of that medication by ground crewman mission support. Such practice is discouraged except when the physician, in their clinical judgment, deems that a medical need exists for a medication without regard to previous use.
--- NOTE | 2022-09-23 12:42 | Ultrasound Report ---
PROCEDURE: Carotid Doppler Complete INDICATIONS: Stuttering TIAs TECHNIQUE: Color and pulse Doppler interrogation was performed of both carotid systems, with image documentation and velocity measurements. COMPARISON: None. FINDINGS: Right side: Brachial blood pressure: Not obtained Common carotid artery peak systolic velocity: 81.1 cm/sec. Internal carotid artery peak systolic velocity: 58.4 cm/sec. Internal carotid artery end diastolic velocity: 27.4 cm/sec. External carotid artery peak systolic velocity: 63.8 cm/sec. ICA/CCA peak systolic ratio: 0.71 . Melara scale imaging description: No significant atherosclerotic plaque. Percent internal carotid artery stenosis: No hemodynamically significant stenosis. Vertebral artery: Flow direction is antegrade. Left side: Brachial blood pressure: Not obtained Common carotid artery peak systolic velocity: 62.2 cm/sec. Internal carotid artery peak systolic velocity: 53.5 cm/sec. Internal carotid artery end diastolic velocity: 22.6 cm/sec. External carotid artery peak systolic velocity: 37.5 cm/sec. ICA/CCA peak systolic ratio: 0.86 . Melara scale imaging description: Mild plaque in the carotid bulb. Percent internal carotid artery stenosis: No hemodynamically significant stenosis. Vertebral artery: Flow direction is antegrade. IMPRESSION: 1. In the right internal carotid artery, there is no hemodynamically significant stenosis based on pe ak systolic velocity criteria. 2. In the left internal carotid artery, there is no hemodynamically significant stenosis based on pea k systolic velocity criteria. 3. Antegrade blood flow within the right vertebral artery. 4. Antegrade blood flow within the left vertebral artery. The estimate of stenosis included in the report of the imaging study was calculated using the [facility]-end orsed standards of carotid artery stenosis. Reviewed by: Keaton Hayes MD on 09/23/2022 12:41 PM PDT Approved by: Keaton Hayes MD on 09/23/2022 12:41 PM PDT Station ID: [id number]
--- NOTE | 2022-09-23 14:30 | Discharge Plan ---
Discharge Plan Problem Reviewed?: Yes Disposition: Home, Self Care Condition: Stable Prescriptions: Apixaban [Eliquis] 5 mg PO BID #60 tab Atorvastatin Calcium [Lipitor] 80 mg PO QPM #30 tablet Diet: Cardiac Activity Restrictions: Activity as Tolerated Shower Restrictions: No Driving Restrictions: Yes (No driving until OKd by ) Instruction Topics: Transient Ischemic Attack Dc, Stroke Prevent Live W Atrial Fib Health Concerns: You were kept in the hospital for further evaluation your neurologic deficit that was coming and going. We call this a stuttering transient ischemic attack. We found that you had no new stroke by imaging of your brain. An old stroke was present, however. You have mild blockages in your carotid arteries from plaque build up, that may have broken off and gone up to the brain. This plaque buildup is caused by elevated cholesterol. We checked your cholesterol level and it is very high. You have been started on a medicine called Lipitor to bring down your cholesterol level. The Echocardiogram was not needed to be repeated because you just had one a week ago. Ever since you have been in Atrial fibrillation, this gives you a higher risk of having a stroke, since Afib causes small clots in the heart, which can break off an go to the brain. So, in Afib patients, to prevent a stroke it is recommended that you be on a blood thinner lifelong. You have been started on a blood thinner called Eliquis and you are being discharged home on this. You may resume all your other pre- Hospital medications. The 2 new prescriptions (for Lipitor and Eliquis), have been electronically sent to your [facility] in [place]. Please start taking them this evening. Please keep the upcoming appointment with Dr. Chicas in [facility] here, in Cardiology. Plan of Treatment: As above. Care Goals: Improvement in symptoms and stabilization are the goals. Assessment: The patient understands and is agreeable with the plan. Additional Instructions or Follow Up instructions: If you have new or worsening symptoms, call your primary care provider for advice, or come to the ER. Follow-Up Care: [facility] - Medical No Smoking: If you smoke, Please STOP! Call for help. Follow-up with: John Narayanan MD [Primary Care Provider] -
--- NOTE | 2022-09-23 15:31 | DISCHARGE SUMMARY ---
Discharge Summary Admit Date: 09/22/22 Discharge Date: 09/23/22 Discharging Provider: Dr Serene Harrington Primary Care Provider: Dr John Narayanan Condition at Discharge: Stable Discharge Disposition: 01 Home, Self Care - HPI History of Present Illness: 82 y old W male with PMH Hypothyroidism, and A fib, not on anticoagulation, presented to ER with the C/O slurred speech and right sided arm numbness and weakness which started at 01:00 pm and lasted for about 10 minutes. No LOC. As per pt, symptoms came back again after 45 minutes and lasted for about 15 minutes. Pt is asymtomatic at this time. On presentaion, vital stable. Able to talk and move all extremities. Denies OSEGUERA, fever, chest pain, SOB, GI, symptoms. CTA head and neck and MRI brain showed no acute abnormalities. Tele neurology was consulted who recommended carotid US (because of a concern in Internal Carotid on CTA neck), and to start anticoagulation. Pt is being brought due to TIA. - HOSPITAL COURSE Hospital Course: 1) TIA Brain and neck imaging showed no acute stroke, mild bilateral carotid plaque. An ultrasound of the carotids was repeated and had similar findings. 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 The patient received aspirin in the ED and was started on Lipitor and Eliquis as recommended by [facility]. All his imaging results were discussed with the patient and daughter at bedside 2) Atrial fibrillation, Chronic Patient was questioned how long he has been in A-fib and why he was on no anticoagulation and he did not know. He described having some cardiac testing done at [facility] and 1 visit to a [employer] there, but says he is about to change to [employer] Dr. Chicas, to be seen next week at the [facility] clinic here in [place]. He had undergone a complete Echocardiogram just 1 week ago as an outpatient, which showed normal LV and RV function and no PFO. No Echocardiogram was repeated now. He was put on telemetry. His heart rate was in a good range, and he was kept on his Metoprolol Succinate 25 mg daily dose. He was started on Eliquis 5 mg twice daily and discharged on this new medication. He was not continued on daily aspirin. All his new medications and management were discussed with the patient and daughter at bedside. 3) Hyperlipidemia His fasting lipid panel showed a total cholesterol of 230, LDL 152 (and target LDL is less than 70 in a patient with a TIA), his Triglyceride was 120. He was started on Lipitor 80 mg qpm, and discharged home on this new prescription. 4) Hypothyroidism He was kept on his same Synthroid dose. - ALLERGIES Allergies/Adverse Reactions: Allergies Allergy/AdvReac Type Severity Reaction Status Date / Time No Known Drug Allergies Allergy Verified 09/22/22 15:05 - MEDICATIONS Home Medications: Ambulatory Orders Medication Instructions Recorded Confirmed Levothyroxine Sodium 50 mcg PO DAILY 09/22/22 09/22/22 Metoprolol Succinate [Toprol Xl] 25 mg PO DAILY 09/22/22 09/23/22 Apixaban [Eliquis] 5 mg PO BID #60 tab 09/23/22 Atorvastatin Calcium [Lipitor] 80 mg PO QPM #30 tablet 09/23/22 Cholecalciferol [Vitamin D3] 50 mcg PO DAILY 09/23/22 09/23/22 Latanoprost 0.005% Ophth Drops 1 drops OPTH QPM 09/23/22 09/23/22 [Xalatan Ophth Drops] Multivit-Min/FA/Lycopen/Lutein 1 each PO DAILY 09/23/22 09/23/22 [Centrum Silver Men Tablet] Triamcinolone 0.1% Cream [Kenalog 1 applic TOP BID 09/23/22 09/23/22 0.1% Cream] - PHYSICAL EXAM AT DISCHARGE General Appearance: positive: No acute distress, Alert Eyes Bilateral: positive: Normal inspection, EOMI ENT: positive: ENT inspection nml, No signs of dehydration Neck: positive: Nml inspection, No JVD Respiratory: positive: No respiratory distress, Breath sounds nml Cardiovascular: positive: Regular rate & rhythm Abdomen: positive: No distention Skin: positive: Warm, Dry Extremities: positive: Non-tender, No pedal edema Neurologic/Psychiatric: positive: Oriented x3, CN's nml (2-12), Motor nml - LABS Result Diagrams: 09/22/22 15:37 09/22/22 15:37 - DIAGNOSTIC IMAGING Diagnostic Imaging Results: Final report reviewed - FOLLOW UP Follow Up: See PCP in 1 to 2 weeks for routine follow-up visit. See Dr. Chicas for new Cardiology appointment, already scheduled and upcoming next week. - TIME SPENT Time Spent in Discharge (Minutes): 30
[2022-09-23 15:48] VITALS: BP 108/78
[2022-09-23] MEDS ORDERED: LATANOPROST 0.005% OPHTH DROPS EACHEYE SCH (21:00)
[2022-09-24] MEDS ORDERED: LEVOTHYROXINE 25 MCG TABLET PO SCH (07:00)
== END 2022-09-23 16:11 | disposition home or self-care (01) ==
LOC: EDUNIT# → ED 14:58 → UNDOADMOB 09-23 00:07 → MS2 09-23 00:07 → INTOOBSV 09-23 00:07 → MS2 09-23 08:31
PROVIDERS: ADMIT Internal Medicine; ATTEND Internal Medicine
DX: G45.9 Transient cerebral ischemic attack, unspecified (principal); I48.20 Chronic atrial fibrillation, unspecified; E78.5 Hyperlipidemia, unspecified; E03.9 Hypothyroidism, unspecified; I10 Essential (primary) hypertension; Z86.73 Personal history of transient ischemic attack (TIA), and cerebral infarction without residual deficits
CPT/HCPCS: 36415; 70496; 70498; 70551; 80053; 80061; 81003; 83690; 85025; 85610; 85730; 93005; 93880; 97161; 97166; 99283; 99285; A9270; G0378; Q9967; 81001; 83721; 87086

== ENCOUNTER 2023-02-08 13:32 | Outpatient (CLI) | payer MEDICARE, OTHER ==
[2023-02-08 13:59] LABS: ESTIMATED AVERAGE GLUCOSE 134 mg/dL (70-100); HEMOGLOBIN A1c% 6.3 % (4.27-6.07)
[2023-02-08 14:05] LABS: CALCIUM 9.6 mg/dL (8.5-10.3); CREATININE 0.9 mg/dL (0.6-1.3); POTASSIUM 4.4 mmol/L (3.5-4.5)
== END 2023-02-08 13:33 | disposition home or self-care (01) ==
LOC: LAB 13:32
PROVIDERS: ATTEND Family Medicine
DX: R73.03 Prediabetes (principal)
CPT/HCPCS: 36415; 80048; 83036

== ENCOUNTER 2023-02-27 08:57 | Outpatient (CLI) | payer MEDICARE, OTHER ==
--- NOTE | 2023-02-28 15:58 | Ultrasound Report ---
PROCEDURE: Duplex Aorta Complete INDICATIONS: BUTTOCK PAIN TECHNIQUE: Color and pulse Doppler interrogation was performed of the aorta and iliac arterial systems, with basil ge documentation. COMPARISON: None. FINDINGS: Aorta: 55 cm/sec, with biphasic flow. Right lower extremity: Proximal common iliac artery: 59cm/sec, with triphasic flow. Distal common iliac artery: 70 cm/sec, with biphasic flow. Proximal external iliac artery: 102 cm/sec, with triphasic flow. Common femoral artery: 67 cm/sec, with triphasic flow. Melara-scale imaging description: No focal hemodynamically significant stenosis. Left lower extremity: Proximal common iliac artery: 62 cm/sec, with biphasic flow. Distal common iliac artery: 60 cm/sec, with biphasic flow. Proximal external iliac artery: 139 cm/sec, with triphasic flow. Common femoral artery: 33 cm/sec, with biphasic flow. Melara-scale imaging description: No focal hemodynamically significant stenosis. IMPRESSION: Biphasic and triphasic waveforms throughout. No focal hemodynamically significant stenosis. Reviewed by: Xiomara Kenyon MD on 02/28/2023 3:57 PM PST Approved by: Xiomara Kenyon MD on 02/28/2023 3:57 PM PST Station ID: [id number]
--- NOTE | 2023-02-28 16:00 | Ultrasound Report ---
PROCEDURE: Duplex Lwr Ext Arterial Bilat INDICATIONS: BUTTOCK PAIN TECHNIQUE: Color and pulse Doppler interrogation was performed of both lower extremity arterial systems, with im age documentation. COMPARISON: None FINDINGS: Right lower extremity: Common femoral artery: 71 cm/sec, with triphasic flow. Deep femoral artery: 36 cm/sec, with triphasic flow. Proximal superficial femoral artery: 48 cm/sec, with triphasic flow. Mid superficial femoral artery: 61 cm/sec, with triphasic flow. Distal superficial femoral artery: 29 cm/sec, with biphasic flow. Popliteal artery: 36 cm/sec, with biphasic flow. Posterior tibial artery: 39 cm/sec, with biphasic flow. Anterior tibial artery/dorsalis pedis: 54 cm/sec, with triphasic flow. Melara-scale imaging description: Mild atheromatous plaque at the popliteal artery. No focal hemodynam ically significant stenosis. Left lower extremity: Common femoral artery: 48 cm/sec, with triphasic flow. Deep femoral artery: 27 cm/sec, with triphasic flow. Proximal superficial femoral artery: 64 cm/sec, with triphasic flow. Mid superficial femoral artery: 59 cm/sec, with triphasic flow. Distal superficial femoral artery: 38 cm/sec, with triphasic flow. Popliteal artery: 53 cm/sec, with triphasic flow. Posterior tibial artery: 27 cm/sec, with biphasic flow. Anterior tibial artery/dorsalis pedis: 45 cm/sec, with triphasic flow. Melara-scale imaging description: No focal hemodynamically significant stenosis. IMPRESSION: No sonographic evidence for hemodynamically significant stenosis. Triphasic and biphasic waveforms th roughout. Reviewed by: Xiomara Kenyon MD on 02/28/2023 3:59 PM PST Approved by: Xiomara Kenyon MD on 02/28/2023 3:59 PM PST Station ID: [id number]
== END 2023-02-27 08:58 | disposition home or self-care (01) ==
LOC: DI 08:57
PROVIDERS: ATTEND Family Medicine
DX: M53.3 Sacrococcygeal disorders, not elsewhere classified (principal)
CPT/HCPCS: 93925; 93978